=== PATIENT | female | born 1995 | race Caucasian/White ===

== ENCOUNTER 2018-03-24 16:40 | Outpatient (CLI) | payer OTHER ==
[~2018-03-24] VITALS: Ht 165.1 cm; Wt 76.7 kg
[2018-03-24 16:53] VITALS: Ht 165.1 cm; Wt 76.7 kg
[2018-03-24 16:54] VITALS: BP 111/69; PULSE 82; RESP 17
--- NOTE | 2018-03-24 18:25 | PN ---
Triage Information Date/Time Reason for visit: Gestational DM for NST FOFANA Weeks of Gestation 39 /Para 2/1 Diabetes: gestational Diabetes management: diet controlled Objective Vital Signs Date Temp Pulse Resp B/P (MAP) Pulse Ox O2 O2 Flow FiO2 Time Delivery Rate 03/24/18 98.1 82 17 111/69 16:54 (83) Heart Rate: 140's Contractions: None Disposition: Discharge Assessment/Plan patient is scheduled to deliver in AM Based on ,her provider's decision she is discharged and will return tomorrow for Induction tomorrow. Precautions discussed Questions answered Follow up with provider LOGAN GRANADO M.D. Mar 24, 2018 18:25
--- NOTE | 2018-03-24 18:36 | TRIAGE ---
OB Triage Datetime Report Generated by CPN: 03/24/2018 18:35 Datetime: 03/24/2018 18:11 Labor Evaluation Frequency: occ Monitor Mode: External Duration (sec)2399: 80-100 Quality: Mild Pattern: Normal: <= 5 Contractions in 10 Minutes Resting Tone [place]: Relaxed Heart Rate FHR Baseline Rate: 145 Monitor Mode: External US Variability: Moderate 6-25 bpm Accelerations: 15X15 Decelerations: None Category: Category I Datetime: 03/24/2018 16:59 Assessment Type: Triage Maternal Assessment Level of Consciousness: Fully Conscious DTR's/Clonus: DTRs 2+; No Clonus Headache: Denies Blurred Vision: No Respiratory Effort: Unlabored; Regular Rhythm; Equal Expansion Breath Sounds, Left: Clear and Equal Breath Sounds, Right: Clear and Equal Nausea/Vomiting: Denies RUQ Epigastric Pain: Denies Lower Extremities Edema: None Degree: None Upper Extremities Edema: None Degree: None Facial Edema: None Fall Risk Assessment History of Falling: (0) No Secondary Diagnosis: (0) No Ambulatory Aid: (0) Bedrest/Nurse Assist IV Therapy: (0) No Gait: (0) Normal/Bedrest/Immobile Mental Status: (0) Oriented to Own Ability Fall Score: 0 Fall Risk Score Definition: No Risk: No action required Datetime: 03/24/2018 16:57 Time of Arrival: 03/24/2018 16:26 EGA: 39.0 Arrived By: Ambulatory Arrived From: Home Chief Complaint: Pt. to ob triage for check up, was scheduled induction tomorrow Movement: Present Contractions: Denies/Absent Rupture of Membranes: Denies Vaginal Bleeding: None Vaginal Discharge: Denies Recent Sexual Intercouse: Denies Abdominal Trauma: Not Applicable Patient Complaints: None Time Provider Notified: 03/24/2018 18:18 Provider Notified: dereje Initial Plan: iraida florez
== END 2018-03-24 18:30 | disposition home or self-care (01) ==
LOC: OBT 16:40 → L-D 16:42 → OBT 18:30
PROVIDERS: ATTEND Specialist
DX: O24.419 Gestational diabetes mellitus in pregnancy, unspecified control (principal); O36.8330 Maternal care for abnormalities of the fetal heart rate or rhythm, third trimester, not applicable or unspecified; Z3A.39 39 weeks gestation of pregnancy
CPT/HCPCS: 76818; Z7500; G0463

== ENCOUNTER 2018-03-25 08:00 | Inpatient (IN) | payer OTHER ==
[~2018-03-25] VITALS: Ht 165.1 cm; Wt 76.6 kg
[2018-03-25 09:05] VITALS: BP 115/76; PULSE 96; RESP 17; Ht 165.1 cm; Wt 76.6 kg
[2018-03-25] MEDS ORDERED: OXYTOCIN 30 UNITS/LR 500 ML IV SCH ×2 (09:30)
[2018-03-25] MEDS ORDERED: OXYCODONE/ASPIRIN (4.88/325) TAB PO PRN (09:30)
[2018-03-25] MEDS ORDERED: OXYTOCIN 30 UNITS/LR 500 ML IV PRN (09:30)
[2018-03-25] MEDS ORDERED: MISOPROSTOL 200 MCG TAB PR PRN (09:30)
[2018-03-25] MEDS ORDERED: LIDOCAINE 1% (MPF) 30 ML INJ INJ PRN (09:30)
[2018-03-25] MEDS ORDERED: METHYLERGONOVINE 0.2 MG INJ IM PRN (09:30)
[2018-03-25] MEDS ORDERED: CARBOPROST 250 MCG INJ IM PRN (09:30)
[2018-03-25] MEDS ORDERED: IBUPROFEN 600 MG TAB PO PRN (09:30)
[2018-03-25] MEDS ORDERED: CEFAZOLIN 2 GM/50 ML (PMX) 50 ML IVPB ONE (10:20)
[2018-03-25] MEDS: MISOPROSTOL 50 MCG CAPSULE PO SCH ×3 (10:22→21:32)
[2018-03-25] MEDS: LACTATED RINGER'S 1,000 ML IV SCH ×2 (10:25→19:17)
[2018-03-25] MEDS: CEFAZOLIN 2 GM/50 ML (PMX) 50 ML IVPB SCH ×2 (10:29→18:03)
--- NOTE | 2018-03-25 18:22 | HP ---
Date/Time of Note Date/Time of Note DATE: 03/25/18 TIME: 18:20 OB - History Hx of Present Free Text/Dictation 22 YO with IUP at 39 weeks with GDM diet controlled. she was admitted for IOL. cervix is closed and she was started on oral Cytotec. R/B/I/A d/w patient. Care: Good Care Ultrasounds: Normal mid trimester US Obstetrical Complications: Gestational Diabetes Medical Complications: None Past Family/Social History * Past Medical, Surgical, Family and Obstetric Histories reviewed from chart. OB Admission Exam Vital Signs Vital Signs Vital Signs Date Temp Pulse Resp B/P (MAP) Pulse Ox O2 O2 Flow FiO2 Time Delivery Rate 03/25/18 98.1 96 17 115/76 09:05 (89) Physical Exam HEENT: WNL Heart: Rhythm Normal Lungs: Clear, Equal Abdomen: WNL Extremities: Normal Reflexes: Normal Cervical Dilatation: None Effacement: 25% Last 72 hourBlood Glucose Bedside Glucose - 72 Hours Test 03/25/18 14:55 Bedside Glucose 98 mg/dL (70-220) Last 72 hours Lab Results CBC & BMP 03/25/18 10:10 OB Assessment/Plan Reason for admission: induction of labor Induction Method: per Misoprostol Protocol SHAREE ELLIS MD Mar 25, 2018 18:22
[2018-03-25] MEDS: BUTORPHANOL 2 MG INJ IV PRN (23:29)
[2018-03-26] MEDS: CEFAZOLIN 2 GM/50 ML (PMX) 50 ML IVPB SCH ×2 (02:09→10:02)
[2018-03-26] MEDS: BUTORPHANOL 2 MG INJ IV PRN (03:43)
[2018-03-26] MEDS: LACTATED RINGER'S 1,000 ML IV SCH ×3 (03:43→09:30)
[2018-03-26] MEDS ORDERED: MINERAL OIL LIGHT 10 ML VIAL ONE (06:57)
[2018-03-26] MEDS ORDERED: MINERAL OIL LIGHT 10 ML VIAL TOP ONE (07:00)
--- NOTE | 2018-03-26 07:04 | PREAC ---
Date/Time of Note Date/Time of Note DATE: 03/26/18 TIME: 07:02 Anesthesia Eval and Record Evaluation Time Pre-Procedure Interview DATE: 03/26/18 TIME: 07:02 Age 22 Sex female NPO: 8 hrs Preoperative diagnosis IUP Planned procedure L&D Epidural Past Medical History Past Medical History: None Surgery & Anesthesia Issues No known issue Meds Anticoagulation: No Beta Lorena within 24 hr: No Reason Beta Lorena not given: Pt. not on B-Lorena No Active Prescriptions or Reported Meds Current Medications Lidocaine (Xylocaine 1% (Mpf)) 30 ml ONCE PRN INJ EPISIOTOMY; Start 03/25/18 at 09:30 Oxytocin/Lactated Ringer's 500 ml @ 500 mls/hr ONCE POST IV ; Start 03/25/18 at 09:30 Oxytocin/Lactated Ringer's 500 ml @ 125 mls/hr POST IV ; Start 03/25/18 at 09:30 Ibuprofen (Motrin) 600 mg ONCE PRN PO PAIN LEVEL 1-5; Start 03/25/18 at 09:30 Oxycodone/Aspirin (Percodan) 2 tab ONCE PRN PO PAIN LEVEL 6-10; Start 03/25/18 at 09:30 Oxytocin/Lactated Ringer's 500 ml @ 0 mls/hr ONCE PRN IV VAGINAL BLEEDING; Start 03/25/18 at 09:30 Methylergonovine Maleate (Methergine) 0.2 mg ONCE PRN IM VAGINAL BLEEDING; Start 03/25/18 at 09:30 Carboprost Tromethamine (Hemabate) 250 mcg ONCE PRN IM VAGINAL BLEEDING; Start 03/25/18 at 09:30 Misoprostol (Cytotec) 1,000 mcg ONCE PRN [place] VAGINAL BLEEDING; Start 03/25/18 at 09:30 Cefazolin Sodium/ Dextrose 50 ml @ 100 mls/hr Q8 IVPB Last administered on 03/26/18at 02:09; Admin Dose 100 MLS/HR; Start 03/25/18 at 10:00 Misoprostol (Cytotec 50 Mcg Capsule) 50 mcg Q4 PO Last administered on 03/25/18at 21:32; Admin Dose 50 MCG; Start 03/25/18 at 10:00 Lactated Ringer's 1,000 ml @ 125 mls/hr Q8H IV Last administered on 03/26/18at 06:45; Admin Dose 125 MLS/HR; Start 03/25/18 at 10:30 Butorphanol Tartrate (Stadol) 2 mg Q2H PRN IV PAIN Last administered on 03/26/18at 03:43; Admin Dose 2 MG; Start 03/25/18 at 23:30 Mineral Oil (Muri-Lube) ONCE ONCE TOP ; Start 03/26/18 at 07:00; Stop 03/26/18 at 07:01; Status UNV Meds reviewed: Yes Allergies Coded Allergies: penicillin G (Verified Allergy, Intermediate, whole body rash, 03/24/18) Allergies Reviewed: Yes Labs/Studies Labs Reviewed: Reviewed by anesthesiologist Result Diagram: 03/25/18 1010 03/25/18 1010 Laboratory Tests 03/25/18 10:10 Blood Bank Test 03/25/18 10:10 Antibody Screen NEGATIVE Blood Type A POSITIVE Rh Immune Globulin Candidate NO test: Positive Studies: ECG Pre-procedure Exam Last vitals Vital Signs Date Temp Pulse Resp B/P (MAP) Pulse Ox O2 O2 Flow FiO2 Time Delivery Rate 03/25/18 98.1 96 17 115/76 09:05 (89) Airway: Adequate mouth opening, Adequate thyromental dist Mallampati: Mallampati II Teeth: Normal Lung: Normal Heart: Normal ASA Physical Status ASA physical status: 2 Emergency: None Planned Anesthetic Neuraxial: Epidural Planned Pain Management Epidural, Parenteral pain med Pre-operative Attestations Prior to commencing anesthesia and surgery, the patient was re-evaluated, there was verification of: *The patient's identity *The results of appropriate recent lab work and preoperative vital signs *The above evaluation not changing prior to induction *Anesthetic plan, risk benefits, alternative and complications discussed with patient/family; questions answered; patient/family understands, accepts and wishes to proceed. ERIC ENGEL MD Mar 26, 2018 07:04
[2018-03-26] MEDS ORDERED: FENTAnyl 2MCG/ML-ROPIV 0.2% 100 ML ONE (07:07)
[2018-03-26] MEDS ORDERED: NALOXONE (0.4 MG/ML) INJ IV PRN (07:30)
[2018-03-26] MEDS ORDERED: DIPHENHYDRAMINE 50 MG INJ IV PRN ×2 (07:30→14:00)
[2018-03-26] MEDS ORDERED: FENTAnyl 2MCG/ML-ROPIV 0.2% 100 ML BAG EPI SCH (07:30)
[2018-03-26] MEDS ORDERED: ONDANSETRON 4 MG INJ IV PRN ×2 (07:30→14:00)
[2018-03-26] MEDS ORDERED: OXYTOCIN 30 UNITS/LR 500 ML IV SCH (08:30)
--- NOTE | 2018-03-26 13:55 | LDN ---
Date/Time of Note Date/Time of Note DATE: 03/26/18 TIME: 13:53 Delivery Summary 22 YO with IUP at 39 weeks with GDM diet controlled. she was admitted for IOL. s/p of viable male with first degree vaginal laceration repaired with 2-0 Chromic in normal fashion. placenta delivered intact and spontaneously. Placenta Delivered: Spontaneously Meconium: none Episiotomy: No Laceration repair: perineium was intact, but she had first degree vaginal laceration that was repaired with 2-0 chromic Anesthesia type: Epidural Estimated blood loss: 300 Sponge & Needle done & correct: Yes All needle counts correct: Yes Any foreign bodies felt in the: No Infant Delivery Information Sex Infant Sex: male Apgars 1 Minute: 9 5 Minute: 9 Suctioning Nose & mouth suctioned at aravind: No Delee suction performed: No Umbilical Cord Umbilical cord with: 3 Vessels Cord presentations: no nuchal cord Cord Blood was obtained: Yes Mother & Baby Disposition Disposition Mom & Baby to Maternity; Good: Yes SHAREE ELLIS MD Mar 26, 2018 13:55
[2018-03-26] MEDS ORDERED: LANOLIN HPA 1 PKT TOP PRN (14:00)
[2018-03-26] MEDS ORDERED: CARBOPROST 250 MCG INJ IM PRN (14:00)
[2018-03-26] MEDS ORDERED: OXYTOCIN 30 UNITS/LR 500 ML IV PRN (14:00)
[2018-03-26] MEDS ORDERED: SENNA/DOCUSATE NA (8.6MG/50MG) TAB PO PRN (14:00)
[2018-03-26] MEDS ORDERED: BENZOCAINE 20% 56 ML SPRAY TOP PRN (14:00)
[2018-03-26] MEDS ORDERED: HYDROCODONE/APAP (5/325) TAB PO PRN ×2 (14:00)
[2018-03-26] MEDS ORDERED: MISOPROSTOL 200 MCG TAB PR PRN (14:00)
[2018-03-26] MEDS ORDERED: WITCH HAZEL/GLYCERIN PAD PR PRN (14:00)
[2018-03-26] MEDS ORDERED: ONDANSETRON 4 MG TAB PO PRN (14:00)
[2018-03-26] MEDS ORDERED: NA PHOSPHATE/BIPHOS 133 ML ENEMA PR PRN (14:00)
[2018-03-26] MEDS ORDERED: DIBUCAINE 1% 30 GM OINT TOP PRN (14:00)
[2018-03-26] MEDS ORDERED: MAGNESIUM HYDROXIDE 30ML CUP PO PRN (14:00)
[2018-03-26] MEDS ORDERED: DIPHENHYDRAMINE 25 MG CAP PO PRN (14:00)
[2018-03-26 15:05] VITALS: BP 119/67; PULSE 88; RESP 18
[2018-03-26 16:50] VITALS: BP 116/62; PULSE 75; RESP 18
[2018-03-26] MEDS: LACTATED RINGER'S 1,000 ML IV* SCH ×2 (16:58→21:51)
[2018-03-26] MEDS: IBUPROFEN 600 MG TAB PO SCH ×2 (18:10→23:34)
[2018-03-26 20:00] VITALS: BP 120/69; PULSE 78; RESP 20
[2018-03-26] MEDS: SENNA/DOCUSATE NA (8.6MG/50MG) TAB PO SCH (21:44)
[2018-03-27] MEDS: LACTATED RINGER'S 1,000 ML IV SCH (02:30)
[2018-03-27 04:47] VITALS: BP 102/57; PULSE 75; RESP 20
[2018-03-27] MEDS: IBUPROFEN 600 MG TAB PO SCH ×4 (05:40→23:42)
[2018-03-27] MEDS: LACTATED RINGER'S 1,000 ML IV* SCH (05:51)
--- NOTE | 2018-03-27 07:56 | DS ---
Date/Time of Note Date/Time of Note DATE: 03/27/18 TIME: 07:56 Obstetrical Discharge Record Final Diagnosis Final Diagnosis: Term delivered Vaginal Delivery Obstetrical Delivery: Spontaneous Complications Gestational Diabetes Augmentation: Yes Induction: Yes Rupture of Membranes: No Condition on Discharge Physical Assessment Voiding: Yes Bowel Movement: Yes Breast: Soft, non-tender, Filling Fundus: Firm Abdomen and Incision: soft, not tender Calf Tenderness: No Patient Condition: Good SHAREE ELLIS MD Mar 27, 2018 07:56
[2018-03-27 08:15] VITALS: BP 110/67; PULSE 74; RESP 16
[2018-03-27] MEDS: SENNA/DOCUSATE NA (8.6MG/50MG) TAB PO SCH ×2 (09:56→20:42)
[2018-03-27 12:00] VITALS: BP 114/68; PULSE 84; RESP 16
[2018-03-27 16:00] VITALS: BP 105/61; PULSE 81; RESP 16
[2018-03-27 20:30] VITALS: BP 110/68; PULSE 95; RESP 18
[2018-03-28 04:21] VITALS: BP 96/64; PULSE 80; RESP 18
[2018-03-28] MEDS: IBUPROFEN 600 MG TAB PO SCH ×2 (05:44→12:24)
[2018-03-28 07:45] VITALS: BP 111/52; PULSE 64; RESP 20
[2018-03-28] MEDS ORDERED: MEASLES,MUMPS,RUBELLA VACCINE INJ SC* ONE (09:00)
[2018-03-28] MEDS ORDERED: VARICELLA VACCINE LIVE/PF 1,350 UNIT/0.5 ML ML SC* ONE (09:00)
[2018-03-28] MEDS ORDERED: DIPHTH/TET/ACEL PERTUSS (ADULT) 0.5 ML VIAL IM* ONE (09:00)
[2018-03-28] MEDS: SENNA/DOCUSATE NA (8.6MG/50MG) TAB PO SCH (09:25)
--- NOTE | 2018-03-28 16:56 | PAC ---
Date/Time of Note Date/Time of Note DATE: 03/28/18 TIME: 16:56 Post-Anesthesia Notes Post-Anesthesia Note Last documented vital signs Vital Signs Date Temp Pulse Resp B/P (MAP) Pulse Ox O2 O2 Flow FiO2 Time Delivery Rate 03/28/18 98.4 64 20 111/52 Room Air 07:45 (71) Activity: WNL Respiratory function: WNL Cardiovascular function: WNL Mental status: Baseline Pain reasonably controlled: Yes Hydration appropriate: Yes Nausea/Vomiting absent: Yes Comments BP:115/67, pulse:78, spo2:100%, T:98,8 ERIC ENGEL MD Mar 28, 2018 16:56
== END 2018-03-28 18:11 | disposition home or self-care (01) | DRG 807 ==
LOC: L-D 08:35 → PP1 03-26 15:10
PROVIDERS: ADMIT Specialist; ATTEND Specialist
PROC: 10E0XZZ Delivery of Products of Conception, External Approach (ICD-10-PCS; principal; 2018-03-26)
PROC: 0HQ9XZZ Repair Perineum Skin, External Approach (ICD-10-PCS; 2018-03-26)
DX: O24.420 Gestational diabetes mellitus in childbirth, diet controlled (principal); Z37.0 Single live birth; O70.0 First degree perineal laceration during delivery; Z3A.39 39 weeks gestation of pregnancy
CPT/HCPCS: 62319; 76815; 82947; 82962; 85025; 85610; 85730; 86592; 86850; 86900; 86901; 87340; 90716; J0595; J0690; J2405; J2590; J3010; J7120